=== PATIENT | male | born 1975 | race Caucasian/White ===

== ENCOUNTER 2022-08-09 08:17 | Outpatient (CLI) | payer OTHER, SELFPAY ==
[2022-08-09 14:05] LABS: Chloride* 104 mmol/L (96-114); Sodium* 140 mmol/L (135-149)
[2022-08-09 14:06] LABS: Potassium* 5.3 mmol/L (3.6-5.1)
[2022-08-09 14:08] LABS: Alanine Aminotransferase* 40 U/L (4-50); Blood Urea Nitrogen* 16 mg/dL (5-24); Carbon Dioxide* 29 mmol/L (20-32); Cholesterol* 172 mg/dL (90-199); Estimated Glomerular Filt Rate 92 ml/min; Glucose* 100 mg/dL (60-115); Triglycerides* 245 mg/dL (40-149)
[2022-08-09 14:09] LABS: Calcium* 10.2 mg/dL (8.4-10.6); HDL Cholesterol* 44 mg/dL (>=40); LDL Cholesterol Calculated 79 mg/dL (<100)
== END 2022-08-09 08:18 | disposition home or self-care (01) ==
PROVIDERS: PCP Family Medicine; Visit Provider Family Medicine
DX: I10 Essential (primary) hypertension (principal); E78.5 Hyperlipidemia, unspecified
CPT/HCPCS: 80048; 80061; 84460

== ENCOUNTER 2022-09-12 09:23 | Outpatient (CLI) | payer OTHER, SELFPAY | END 2022-09-12 09:24 | disposition home or self-care (01) | PROVIDERS: PCP Family Medicine; Visit Provider Surgery | DX: Z12.11 Encounter for screening for malignant neoplasm of colon (principal); K62.1 Rectal polyp; Z80.0 Family history of malignant neoplasm of digestive organs | CPT/HCPCS: 45385; 88305; A9270; J2250; J2405; J3010 ==

== ENCOUNTER 2023-09-29 10:34 | Outpatient (CLI) | payer OTHER, SELFPAY | END 2023-09-29 10:35 | disposition home or self-care (01) | PROVIDERS: PCP Family Medicine; Visit Provider Family Medicine | DX: E78.2 Mixed hyperlipidemia (principal); I10 Essential (primary) hypertension; Z12.5 Encounter for screening for malignant neoplasm of prostate | CPT/HCPCS: 80048; 80061; 84460; G0103 ==

== ENCOUNTER 2024-06-22 08:58 | Emergency (ER) | payer OTHER, SELFPAY ==
[2024-06-22 09:04] VITALS: BP 149/96; PULSE 87; RESP 18; TEMP 36.6; O2SAT 95; BMI 26.1
--- NOTE | 2024-06-22 09:08 | ED_ITS ---
HPI - Extremity Injury (Upper) General Time Seen by Provider: 09:08 Date Seen: 06/22/24 Chief Complaint: Extremity Pain/Injury, Upper Stated Complaint: felt pop in right arm Time Seen by Provider: 06/22/24 09:08 Source: patient Mode of arrival: ambulatory Limitations: no limitations History of Present Illness HPI narrative: 49-year-old male who presents today with right arm pain. Patient reports chronic shoulder pain bilaterally. Notes that he was reaching behind him yesterday and felt a pop in the shoulder, has had pain since then. No numbness or tingling in the arm, no weakness, no neck pain. Pain is worse with movements. Has not taken anything for this. Related Data Home Medications ?Medication ?Instructions ?Recorded ?Confirmed hydrocortisone 2.5 % topical cream 1 applic topical BID PRN 09/29/23 04/15/24 [id number] 250 2 tab PO Q6H PRN 04/15/24 04/15/24 mg-250 mg-65 mg tablet (Excedrin Migraine) Previous Rx's ?Medication ?Instructions ?Recorded trazodone 50 mg tablet 50 mg PO QHS PRN sleep #90 tabs 08/09/22 atorvastatin 40 mg tablet 40 mg PO QPM #90 tabs 09/29/23 lisinopril 10 mg tablet 10 mg PO DAILY #90 tabs 09/29/23 amitriptyline 75 mg tablet 75 mg PO QDAY #90 tabs 04/15/24 Allergies Allergy/AdvReac Type Severity Reaction Status Date / Time grass pollen Allergy Mild Congested Verified 04/15/24 08:03 house dust Allergy Mild Congested Verified 04/15/24 08:03 [facility] Medical History (Updated 06/22/24 @ 09:20 by Paul Hassan MD) Vestibular migraine ?G43.809 - Other migraine, not intractable, without status migrainosus (ICD- 10) Mixed hyperlipidemia ?E78.2 - Mixed hyperlipidemia (ICD-10) Primary hypertension ?I10 - Essential (primary) hypertension (ICD-10) Eczema ?L30.9 - Dermatitis, unspecified (ICD-10) Meniere's disease (09/03/12) ?H81.09 - Meniere's disease, unspecified ear (ICD-10) Chronic sinusitis ?J32.9 - Chronic sinusitis, unspecified (ICD-10) Surgical History (Updated 08/09/22 @ 08:57 by Alistair Fabian MD) History of eye surgery ?Z98.890 - Other specified postprocedural states (ICD-10) History of tympanostomy tube placement (09/03/12) ?Z96.22 - Myringotomy tube(s) status (ICD-10) Family History (Updated 08/09/22 @ 08:55 by Alistair Fabian MD) Father Colon cancer Mother Heart disease Other Diabetes Prostate cancer Social History (Updated 09/29/23 @ 10:13 by Yvonne Barney ~ RMA, RMA) Narrative: Crystal Lock, non-smoker What is your current living situation?: I presently have a place to live Problems where you live: no known problems In the past 12 months, utilities in danger of being shut off: no In the past 12 mos, have been you worried that your food would run out before you had money to buy more?: never true In the past 12 mos, the food you bought just didn't last and you didn't have money to buy more?: never true Smoking Status: Former smoker How often does anyone, including family, friends and others, physically hurt you : never How often does anyone, including family, friends and others, insult or talk down to you: never How often does anyone, including family, friends and others, threaten you with harm: never How often does anyone, including family, friends and others, scream or curse at you: never Exam Narrative: Exam Narrative: General: well nourished , NAD Head: Atraumatic and normocephalic ENT: External ears and external nose are normal Eyes: Conjunctiva clear, pupils are equal reactive, external ocular motions are intact Neck: Full spontaneous range of motion of the neck Lungs: No respiratory distress Musculoskeletal: Shoulder bulk, triceps biceps bulk symmetric bilaterally. No tenderness of the right shoulder. He does have pain with multiple movements, particularly active forward flexion past about 30? and resisted external rotation. Range of motion is better with passive forward flexion. No joint effusion. Neurologic: No gross focal neurologic deficits Skin: No rashes Psych: Mood and affect are appropriate Const: Vital Signs, click to edit/add: Vital Signs - 24 hr 06/22/24 09:04 Temperature 98 F Pulse Rate [Pulse Oximeter] 87 Respiratory Rate 18 Blood Pressure [Ri ght Upper Arm] 149/96 H Pulse Oximetry 95 Oxygen Delivery Me thod Room Air Course Course ED Course: Patient seen examined, presents today with right shoulder and arm pain. History of chronic bilateral sort of pain and decreased range of motion but felt a pop in the right shoulder yesterday and that concerned him. On exam here, strength is intact in all modalities but pain limits range of motion. Suspect rotator cuff injury. No evidence of cervical radiculopathy, biceps or triceps tendon rupture, joint effusion or dislocation. No fall and no bony tenderness, consider x-ray but not indicated today. Also consider MRI but limited utility in setting of acute injury. Patient will placed in sling, declines pain medication, and follow-up with orthopedics for further evaluation including possible physical therapy, MRI. Vital Signs Vital signs: Initial Vital Signs Temperature 98 F 06/22/24 09:04 Temperature Source Temporal Artery Scan 06/22/24 09:04 Pulse Rate 87 06/22/24 09:04 Respiratory Rate 18 06/22/24 09:04 Blood Pressure 149/96 H 06/22/24 09:04 Blood Pressure Mean 113 H 06/22/24 09:04 Pulse Oximetry 95 06/22/24 09:04 Oxygen Delivery Method Room Air 06/22/24 09:04 Vital Signs Temperature 98 F 06/22/24 09:04 Pulse Rate 87 06/22/24 09:04 Respiratory Rate 18 06/22/24 09:04 Blood Pressure 149/96 H 06/22/24 09:04 Pulse Oximetry 95 06/22/24 09:04 Oxygen Delivery Method Room Air 06/22/24 09:04 Temperature 98 F 06/22/24 09:04 Pulse Rate 87 06/22/24 09:04 Respiratory Rate 18 06/22/24 09:04 Blood Pressure 149/96 H 06/22/24 09:04 Pulse Oximetry 95 06/22/24 09:04 Oxygen Delivery Method Room Air 06/22/24 09:04 Discharge Plan Discharge Clinical Impression: Injury of right rotator cuff Patient Disposition: Home, Self-Care Condition: Stable Instructions: Rotator Cuff Injury (ED) Additional Instructions: Tylenol and ibuprofen as needed Wear sling for comfort. No lifting or overhead work with the right arm. Follow-up with orthopedics next week [facility] [address] [place] [id number] Activity Level: Wear Brace Prescriptions: No Action trazodone 50 mg tablet 50 mg PO QHS PRN (Reason: sleep) Qty: 90 3RF hydrocortisone 2.5 % cream 1 applic topical BID PRN atorvastatin 40 mg tablet 40 mg PO QPM Qty: 90 3RF lisinopril 10 mg tablet 10 mg PO DAILY Qty: 90 3RF Excedrin Migraine 250-250-65 mg tablet 2 tab PO Q6H PRN amitriptyline 75 mg tablet 75 mg PO QDAY Qty: 90 1RF Follow Up/Referrals: Alistair Fabian MD [Primary Care Provider] - Stand Alone Forms: [employer] Info Instructions
--- OUTSIDE RECORDS SUMMARY | 2024-06-22 09:31 | XMS_ITS | Clinical Summary ---
Author Organization [facility] [facility] Address [place], [place] [address] Care Team Providers Care Coach Builder Name Role Phone Unavailable Primary Care Provider Unavailabl e Allergies No known active allergies Medications Medication Sig Dispensed Refills Start Date End Date Status fluticasone, 50 mcg per actuation, nasal (FLONASE) 50 mcg/Actuation nasal sprayIndications:Acu te sinusitis, unspecified inhale 1-2 spray in each nostril by intranasal route once daily 1 Bottle 1 04/27/2011 Active hydroCHLOROthiazide 50 mg tablet 03/19/2018 Active Active Problems Problem Noted Date Diagnosed Date Meniere's disease, unspecified 11/03/2009 Overview (11/03/2009): Questionable diagnosis September 2009. Rash and other nonspecific skin eruption 010 Overview (11/03/2009): For the past 3 years. Unspecified sinusitis (chronic) 11/03/2009 Overview (11/03/2009): For the past 3 years. Immunizations Name Administration Dates Next Due Tdap 09/10/2008 Family History Medical History Relation Name Comments Alcohol/Drug Brother 2 Other Father Emphysema; smok er. Unknown Maternal Grandfather Cancer Maternal Grandmother Heart Disease Mother first [place] at ag e 42; bypass at that time. HTN, stents placed, Hyperlipidemia Mother Cancer-prostate Paternal Grandfather Other Paternal Grandmother Emphyse ma Other Sister 2 female issues Relation Name Status Comments Brother 1 Alive Brother 2 Father Alive Maternal Grandfather [place], age 46. Maternal Grandmother Mother Alive Other 1 MGGFs [place], age 46. Other 2 maternal aunts & uncle MIs a nd bypass Paternal Grandfather Paternal Grandmother Sister 1 Alive Sister 2 Social History Tobacco Use Types Packs/Day Years Used Date Smoking Tobacco: Never Smokeless Tobacco: Former Chew Quit: 07/24/1997 Comments:Smoked in high scho ol for 1 year, then quit. Chewed tobacco from age 13 to 22. No tobacco products at this time. Alcohol Use Standard Drinks/Week Comments Yes 0 (1 standard drink = 0.6 oz pur e alcohol) Rare; makes dizziness worse. Sex and Gender Information Value Date Recorded Sex Assigned at Not on file Gender Identity Not on file Sexual Orientation Not on file Obstetrics History Last Filed Vital Signs Vital Sign Reading Time Taken Comments Blood Pressure 108/70 2018 1:29 PM CDT Pulse 80 2018 1:29 PM CDT Temperature 36.4 C (97.6 F) 2018 1:29 PM CDT Respiratory Rate 16 2018 1:29 PM CDT Oxygen Saturation 97% 04/27/2011 11:46 AM CDT Inhaled Oxygen Concentration - - Weight 79.4 kg (175 lb) 2018 1:29 PM CDT Height 174 cm (5' 8.5) 2018 1:29 PM CDT Body Mass Index 26.22 2018 1:29 PM CDT Plan of Treatment Health Maintenance Due Date Last Done Comments Depression screening for age 12+ 1985 HIV for age 15-65 1988 Hepatitis C screening for ag e 18-79 1991 Colonoscopy through age 75 2018 Lipids for age 45-75 2018 Tetanus booster 09/10/2018 09/10/2008 BMI (ht and wt on same day) for age 18+ 2019 2018 Zoster (shingles) series for age 50+ (1 of 2) 2023 COVID-19 vaccine series (2023- season) 2024 Influenza for age 50-64 03/24/2024 Tdap Completed 09/10/2008 Pneumococcal series for age 6-64 Aged Out No longer eligible based on patient's age to complete this topic
--- OUTSIDE RECORDS SUMMARY | 2024-06-22 09:31 | XMS_ITS | Continuity of Care Document ---
Author Organization [facility] Address [address] [place] [address] Phone Care Team Providers Care Oven Roaster Name Role Phone Harinder ROPER, PhD, Wai Unavailable Unavai lable Allergies, Adverse Reactions, Alerts Substance Reaction Status Criticality No Known Allergies Active No Inform ation Procedures Procedure Date Office/Outpatient Visit,[facility] 2016 Advance Directives Directive Yes / No Effective Date File Name No Information Encounters Encounter Description Practice Location Reason(s) For Visit Diagnoses Date Provider Providers Copied on Encounter Office/Outpat ient Visit, [facility], [address], [place], [place], [id number], [place] tel:[phone] [facility] [place] [facility] Harinder Carreno. [facility], [address], [place], [address], [place]. tel:[phone] Referring Provider: Mario Mascorro, [facility] [address] [place], [address]. tel:[phone] Family History Family Member Type Diagnosis Age At Onset No Information Payers Payer name Insurance type Covered green party ID Authoriza tion(s) No Information Social History Type Description Quantity Date Captured Comments Alcohol Use Details Unknown Caffeine Use Details Unknown Tobacco Use Status Smoking Status Former smoker Non-Smoking Tobacco Use Details : No Details Available : No Details Available Sex Male Vital Signs Date / Time: Height Weight BMI Pulse Rate Blood Pressure Temperature Respiratory Rate Body Surface Area Head Circumference Head Circ. Percentile Wt./Henrique. Percentile BMI percentile Pulse Ox Inhaled Ox 3:46 PM 62 /min 122/79 mm[Hg] Chief Complaint And Reason For Visit No Information Reason For Referral Reason For Referral No Information History Of Present Illness Encounter Date Complaint History Of Prese nt Illness No Information Functional Status Date Functional Assessmen t No Information Instructions Date Instruction Additional Infor mation No Information Assessments Type Assessment Date assessment Cervicalgia Patient Care Teams Name Effective Dates (start - stop) Status Members No Information
== END 2024-06-22 09:38 | disposition home or self-care (01) ==
LOC: ED 09:29
PROVIDERS: Emergency Provider Family Medicine; PCP Family Medicine
DX: S46.001A Unspecified injury of muscle(s) and tendon(s) of the rotator cuff of right shoulder, initial encounter (principal); X58.XXXA Exposure to other specified factors, initial encounter
CPT/HCPCS: 99282; 99283

== ENCOUNTER 2024-07-01 06:57 | Outpatient (CLI) | payer OTHER, SELFPAY ==
--- OUTSIDE RECORDS SUMMARY | 2024-07-01 07:00 | XMS_ITS | Clinical Summary ---
Author Organization [employer] [facility] Address [place], [place] [address] Care Team Providers Care Organizational Effectiveness Director Name Role Phone Unavailable Primary Care Provider Unavailabl e Allergies No known active allergies Medications fluticasone, 50 mcg per actuation, nasal (FLONASE) 50 mcg/Actuation nasal sprayIndications :Acute sinusitis, unspecified inhale 1-2 spray in each nostril by intranasal route once daily 1 Bottle 1 1 Active hydroCHLOROthiaz daxa 50 mg tablet 8 Active Active Problems Problem Noted Date Diagnosed [...] Cancer Maternal Grandmother Heart Disease Mother first [place] at [place] 42; bypass at that time. HTN, stents placed, Hyperlipidemia Mother Cancer-prostate Paternal Grandfather Other Paternal Grandmother Emphyse ma Other Sister 2 female issues Relation Name Status Comments Brother 1 Alive Brother 2 Father Alive Maternal Grandfather [place], age 46. Maternal Grandmother Mother Alive Other 1 MGGFs [place], age 46. 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
--- OUTSIDE RECORDS SUMMARY | 2024-07-01 07:00 | XMS_ITS | Continuity of Care Document ---
Author Organization [facility] Address [address] [place] [address] Phone Care Team Providers Care Sheep Shearer Name Role Phone Harinder ROPER, PhD, Wai Unavailable Unavai lable Allergies, Adverse Reactions, Alerts Substance Reaction Status Criticality No Known Allergies Active No Inform ation Procedures Procedure Date Office/Outpatient Visit,[facility] 2016 Advance Directives Directive Yes / No Effective Date File Name No Information Encounters Encounter Description Practice Location Reason(s) For Visit Diagnoses Date Provider Providers Copied on Encounter Office/Outpat ient Visit, [facility], [address], [place], [place], [id number], [place] tel:[phone] [facility] [place] [facility] Harinder Carreno. [facility], [address], [place], [address], [place]. tel:[phone] Referring Provider: Mario Mascorro, [facility] [address] [place], [address]. tel:[phone] Family History Family Member Type Diagnosis Age At Onset No Information Payers Payer name Insurance type Covered democrat ID Authoriza tion(s) No Information Social History [...]
--- NOTE | 2024-07-01 07:15 | MR_ITS ---
[address] [address] Phone:?[phone] Fax:?[phone] Referring Physician Information: Oscar Bill M.D. [address] [facility] [address] Phone:?[phone] Fax:?[phone] Patient:Yvonne Yan D.O.B:?1975 Sex:?Male Phone:?[phone] [facility] MRN:?[id number] Exam Date:?07/01/2024 EXAM: MRI EXAMINATION OF THE RIGHT SHOULDER CLINICAL INFORMATION: Right shoulder pain. No specific injury. No history of surgery to this area. Evaluate rotator cuff tendon tear. TECHNICAL INFORMATION: Coronal STIR as well as axial, sagittal and coronal PD and T2-weighted images acquired. No prior studies for comparison. INTERPRETATION: Bones: There is no Hill-Sachs impaction deformity. No other occult fracture or osseous contusion. No other bone marrow edema pattern. Rotator Cuff: Series 9 image 6 as well as series 5 images 11 and 12 demonstrate a 0.9 cm AP full-thickness tear towards the far anterior fibers of the supraspinatus tendon insertion. Torn tendon fibers remain situated well lateral to the mid humeral head level. Undersurface partial tearing continues an additional 1.2 cm posteriorly from this. No evidence for muscle belly atrophy. Moderate infraspinatus tendinopathy. The teres minor tendon is intact. There is a 1.8 cm craniocaudal deep fiber tear with resultant severe attenuation of the superior subscapularis tendon. No appreciable rotator cuff muscle belly atrophy. Coracoacromial arch: There is osseous spurring involving the anterolateral aspect of the acromion. The bony acromiohumeral interval is measuring 6 mm. There is no thickening identified of the coracoacromial ligament. Acromioclavicular joint: Mild to moderate AC joint DJD. No deformity of the underlying supraspinatus tendon. Biceps tendon: Absent visualization of the intra-articular long head biceps tendon, appearance in keeping with acute or subacute disruption. Torn tendon fibers retracted 3.2 cm distal to the surgical neck of the humerus level. Glenohumeral joint and labrum: There is a small glenohumeral joint effusion. No discrete loose body within the joint. Osteochondral surfaces appear relatively preserved. There is tearing through the superior aspect of the labrum. Tearing continues into the superior posterior labrum. No discrete paralabral cyst is identified. CONCLUSION: 1. Acute or subacute intra-articular long head biceps tendon disruption. Torn tendon fibers retracted 3.2 cm distal to the surgical neck of the humerus level. 2. There is a small to moderate-sized full-thickness tear towards the far anterior supraspinatus tendon insertion. Torn tendon fibers remain situated well lateral to the mid humeral head level, and without muscle belly atrophy. There is a moderate adjacent undersurface partial tear extending posteriorly from this. 3. There is a moderate-sized segment of deep fiber tearing and resultant severe attenuation of the superior subscapularis tendon. 4. Mild to moderate AC joint DJD with mild narrowing of the acromiohumeral interval. 5. Tearing involving the superior labrum extending into the superior posterior labrum. No paralabral cyst. KES Electronically signed on 07/01/2024 1:21:00 PM by Cam Reed M.D.
== END 2024-07-01 06:58 | disposition home or self-care (01) ==
LOC: MRI 06:58
PROVIDERS: PCP Family Medicine; Visit Provider Orthopaedic Surgery Sports Medicine
DX: M25.511 Pain in right shoulder (principal); M75.101 Unspecified rotator cuff tear or rupture of right shoulder, not specified as traumatic; M19.011 Primary osteoarthritis, right shoulder; S43.431A Superior glenoid labrum lesion of right shoulder, initial encounter; S46.011A Strain of muscle(s) and tendon(s) of the rotator cuff of right shoulder, initial encounter
CPT/HCPCS: 73221

== ENCOUNTER 2024-07-29 08:40 | Outpatient (CLI) | payer OTHER, SELFPAY | END 2024-07-29 08:41 | disposition home or self-care (01) | LOC: FBOREF 08:41 | PROVIDERS: PCP Family Medicine; Visit Provider Family Medicine | DX: I10 Essential (primary) hypertension (principal) | CPT/HCPCS: 80048; 85025 ==

== ENCOUNTER 2024-08-01 17:54 | Emergency (ER) | payer OTHER, SELFPAY ==
--- OUTSIDE RECORDS SUMMARY | 2024-08-01 17:55 | XMS_ITS | Clinical Summary ---
Author Organization [email or web address] [facility] Address [place], [place] [address] Care Team Providers Care Therapist Asst Name Role Phone Unavailable Primary Care Provider [...] Cancer Maternal Grandmother Heart Disease Mother first [place] at ag e 42; bypass at that time. HTN, stents placed, Hyperlipidemia Mother Cancer-prostate Paternal Grandfather Other Paternal Grandmother Emphyse ma Other Sister 2 female issues Relation Name Status Comments Brother 1 Alive Brother 2 Father Alive Maternal Grandfather [place], age 46. Maternal Grandmother Mother Alive Other 1 MGGFs [place], age 46. 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
[2024-08-01 17:59] VITALS: BP 131/80; PULSE 68; RESP 18; TEMP 36.2; O2SAT 98; BMI 27.2
--- NOTE | 2024-08-01 18:40 | ED_ITS ---
HPI - General Adult General Chief complaint: Arrhythmia/Palpitations Stated complaint: heart palpitations Time Seen by Provider: 08/01/24 18:09 Source: patient and family Mode of arrival: ambulatory Limitations: no limitations History of Present Illness HPI narrative: 49-year-old male presenting today with concerns about his pulse. Patient was completely asymptomatic when he noticed that his watch stated that his pulse was in the 120s. He was fluctuating anywhere from 120s to 130s. It got as high as 160s. He states that he put on his coworkers watch and it was also very labile with a heart rate anywhere from the 80s to 120s. He denies feeling short of breath, he denies palpitations. He has no new dizziness or lightheadedness. He denies chest pain. He states that he checked his pulse while this was happening and it was less than 100. His watch still states as of this moment his pulse is 110-115. Related Data Home Medications ?Medication ?Instructions ?Recorded ?Confirmed hydrocortisone 2.5 % topical cream 1 applic topical BID PRN 09/29/23 07/29/24 [id number]-[id number]-sisxbxip 250 2 tab PO Q6H PRN 04/15/24 07/29/24 mg-250 mg-65 mg tablet (Excedrin Migraine) Previous Rx's ?Medication ?Instructions ?Recorded trazodone 50 mg tablet 50 mg PO QHS PRN sleep #90 tabs 08/09/22 atorvastatin 40 mg tablet 40 mg PO QPM #90 tabs 09/29/23 lisinopril 10 mg tablet 10 mg PO DAILY #90 tabs 09/29/23 amitriptyline 50 mg tablet 50 mg PO QHS #90 tabs 07/01/24 Allergies Allergy/AdvReac Type Severity Reaction Status Date / Time grass pollen Allergy Mild Congested Verified 07/29/24 08:12 house dust Allergy Mild Congested Verified 07/29/24 08:12 Review of Systems Status of ROS: Reports: 10 or more systems reviewed and unremarkable except as noted in History and below [facility] Medical History Vestibular migraine ?G43.809 - Other migraine, not intractable, without status migrainosus (ICD- 10) Mixed hyperlipidemia ?E78.2 - Mixed hyperlipidemia (ICD-10) Primary hypertension ?I10 - Essential (primary) hypertension (ICD-10) Eczema ?L30.9 - Dermatitis, unspecified (ICD-10) Meniere's disease (09/03/12) ?H81.09 - Meniere's disease, unspecified ear (ICD-10) Chronic sinusitis ?J32.9 - Chronic sinusitis, unspecified (ICD-10) Surgical History History of eye surgery ?Z98.890 - Other specified postprocedural states (ICD-10) History of tympanostomy tube placement (09/03/12) ?Z96.22 - Myringotomy tube(s) status (ICD-10) Family History Father Colon cancer Mother Heart disease Other Diabetes Prostate cancer Social History Narrative: Crystal Lock, non-smoker What is your current living situation?: I presently have a place to live Problems where you live: no known problems In the past 12 months, utilities in danger of being shut off: no In past 12 months, lack of transportation kept you from medical appts, meetings, work, or getting things needed for daily living: no In the past 12 mos, have been you worried that your food would run out before you had money to buy more?: never true In the past 12 mos, the food you bought just didn't last and you didn't have money to buy more?: never true Smoking Status: Former smoker How often does anyone, including family, friends and others, physically hurt you : never How often does anyone, including family, friends and others, insult or talk down to you: never How often does anyone, including family, friends and others, threaten you with harm: never How often does anyone, including family, friends and others, scream or curse at you: never Exam Narrative: Exam Narrative: Well-nourished well-developed patient in no acute distress. Alert and oriented. Answers questions appropriately. Mood and affect are appropriate. Thoughts are goal oriented and rational. No tangential or magical thinking noted. Patient speaks in full sentences without needing to catch his breath. HEENT: Normocephalic atraumatic. Pupils are equally round reactive to light. Extraocular muscles are intact. Conjunctivae are moist without any icterus noted. Moist mucous membranes. Cardiovascular: Heart is regular rate and rhythm S1 and S2 are present without any murmurs. Lungs: Clear to auscultation bilaterally no wheezes rhonchi or rales are appreciated. Patient takes deep breaths without any discomfort. Extremities: Bilateral lower extremities are without edema. Skin: Well perfused. 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 EKG, read by me, shows normal sinus rhythm with a pulse of 75. This was simultaneously done while his watch clocked a heart rate of 113. Vital Signs Vital signs: Initial Vital Signs Temperature 97.2 F L 08/01/24 17:59 Temperature Source Temporal Artery Scan 08/01/24 17:59 Pulse Rate 68 08/01/24 17:59 Respiratory Rate 18 08/01/24 17:59 Blood Pressure 131/80 08/01/24 17:59 Blood Pressure Mean 97 08/01/24 17:59 Blood Pressure Position Sitting 08/01/24 17:59 Pulse Oximetry 98 08/01/24 17:59 Vital Signs Temperature 97.2 F L 08/01/24 17:59 Pulse Rate 68 08/01/24 17:59 Respiratory Rate 18 08/01/24 17:59 Blood Pressure 131/80 08/01/24 17:59 Pulse Oximetry 98 08/01/24 17:59 Temperature 97.2 F L 08/01/24 17:59 Pulse Rate 68 08/01/24 17:59 Respiratory Rate 18 08/01/24 17:59 Blood Pressure 131/80 08/01/24 17:59 Pulse Oximetry 98 08/01/24 17:59 Medical Decision Making MDM Narrative Medical decision making narrative: 49-year-old male with a malfunction of his watch. Patient reassured that his pulse was within normal limits an EKG look normal. Again, patient completely asymptomatic. Discharge Plan Discharge Clinical Impression: Medical condition not demonstrated Patient Disposition: Home, Self-Care Condition: Stable Prescriptions: No Action trazodone 50 mg tablet 50 mg PO QHS PRN (Reason: sleep) Qty: 90 3RF hydrocortisone 2.5 % cream 1 applic topical BID PRN atorvastatin 40 mg tablet 40 mg PO QPM Qty: 90 3RF lisinopril 10 mg tablet 10 mg PO DAILY Qty: 90 3RF Excedrin Migraine 250-250-65 mg tablet 2 tab PO Q6H PRN amitriptyline 50 mg tablet 50 mg PO QHS Qty: 90 3RF Follow Up/Referrals: Alistair Fabian MD [Primary Care Provider] - Stand Alone Forms: [employer] Info Instructions
--- OUTSIDE RECORDS SUMMARY | 2024-08-01 18:50 | XMS_ITS | Clinical Summary ---
Author Organization [employer] [facility] Address [place], [place] [address] Care Team Providers Care Cyber Reverse Engineer Name Role Phone Unavailable Primary Care Provider [...] Cancer Maternal Grandmother Heart Disease Mother first [place] at ag e 42; bypass at that time. HTN, stents placed, Hyperlipidemia Mother Cancer-prostate Paternal Grandfather Other Paternal Grandmother Emphyse ma Other Sister 2 female issues Relation Name Status Comments Brother 1 Alive Brother 2 Father Alive Maternal Grandfather [place], age 46. Maternal Grandmother Mother Alive Other 1 MGGFs [place], age 46. Other 2 maternal aunts & [...] on file Legal Sex Male 5:42 AM SKIN FORMER Gender Identity Not on file Sexual Orientation [...]
[2024-08-01 19:35] VITALS: BP 131/80; PULSE 68; RESP 18; TEMP 36.2
== END 2024-08-01 19:00 | disposition home or self-care (01) ==
LOC: ED 18:49
PROVIDERS: Emergency Provider Family Medicine; PCP Family Medicine
DX: Z71.1 Person with feared health complaint in whom no diagnosis is made (principal)
CPT/HCPCS: 93005; 99282; 99283; 99284

== ENCOUNTER 2024-08-19 06:15 | Day surgery (SDC) | payer OTHER, SELFPAY ==
[2024-08-19] VITALS (13 sets, daily range): BP systolic 104–143; BP diastolic 59–90; PULSE 63–74; RESP 14–25; TEMP 35.9–36.5; O2SAT 92–98; BMI 27.1
--- OUTSIDE RECORDS SUMMARY | 2024-08-19 06:18 | XMS_ITS | Continuity of Care Document ---
Author Organization [facility] Address [address] [place] [address] Phone Care Team Providers Care Pca Name Role Phone Harinder ROPER, PhD, Wai Unavailable Unavai lable Allergies, Adverse Reactions, Alerts Substance Reaction Status Criticality No Known Allergies Active No Inform ation Procedures Procedure Date Office/Outpatient Visit,[facility] 2016 Advance Directives Directive Yes / No Effective Date File Name No Information Encounters Encounter Description Practice Location Reason(s) For Visit Diagnoses Date Provider Providers Copied on Encounter Office/Outpat ient Visit, [facility], [address], [place], [place], [id number], [place] tel:[phone] [facility] [place] [facility] Harinder Carreno. [facility], [address], [place], [address], [place]. tel:[phone] Referring Provider: Mario Mascorro, [facility] [address] [place], [address]. tel:[phone] Family History Family Member Type Diagnosis Age [...]
--- OUTSIDE RECORDS SUMMARY | 2024-08-19 06:18 | XMS_ITS | Clinical Summary ---
Author Organization [employer] [facility] Address [place], [place] [address] Care Team Providers Care Board Design Engineer Name Role Phone Unavailable Primary Care [...] Cancer Maternal Grandmother Heart Disease Mother first [place] at ag e 42; bypass at that time. HTN, stents placed, Hyperlipidemia Mother Cancer-prostate Paternal Grandfather Other Paternal Grandmother Emphyse ma Other Sister 2 female issues Relation Name Status Comments Brother 1 Alive Brother 2 Father Alive Maternal Grandfather [place], age 46. Maternal Grandmother Mother Alive Other 1 MGGFs [place], age 46. 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
[2024-08-19] MEDS: SODIUM CHLORIDE 0.9 % (FLUSH) 10 ML SYRINGE IVF (06:59)
[2024-08-19] MEDS: LACTATED RINGERS 1000 ML 1,000 ML 100 ML IV (07:00)
--- NOTE | 2024-08-19 07:09 | W.PM.H&PU ---
History & Physical Update History & Physical Update H&P Reviewed and patient assessed: No changes noted
[2024-08-19] MEDS: SCOPOLAMINE 1 MG/3 DAY PATCH 1 PATCH TRANSDERMA (07:14)
[2024-08-19] MEDS: MIDAZOLAM HCL 1 MG/ML inj IVP (07:20)
--- NOTE | 2024-08-19 07:24 | SUR.PREOP ---
TIME?OUT:? 18, right shoulder PT/RN/MDA?VERIFICATION?OF?SURGICAL?SITE,?PROCEDURE,?AND?CONSENT OBTAINED?PRIOR?TO?INVASIVE?PROCEDURE.
[2024-08-19] MEDS: CEFAZOLIN 2 GM in 0.9 % SODIUM CHLORIDE Mini-bag 100 ML IVPB (07:35)
[2024-08-19] MEDS: EPINEPHrine 1 MG in SODIUM CHLORIDE IRRIG SOLUTION 3,000 ML 9003 MG IRRIGATION ×4 (07:58→09:15)
--- NOTE | 2024-08-19 09:13 | PM.ORPRC ---
Procedure Note Date of procedure: 08/19/24 Procedure: PREOPERATIVE DIAGNOSES: 1. Right shoulder rotator cuff tear - full-thickness supraspinatus 2. Right shoulder AC degenerative joint disease, primary, moderate with indentation into the supraspinatus 3. Right shoulder long head of biceps traumatic rupture 2. Right shoulder subacromial impingement syndrome. POSTOPERATIVE DIAGNOSES: 1. Right shoulder rotator cuff tear - high-grade partial-thickness upper border subscapularis and full-thickness supraspinatus 2. Right shoulder AC degenerative joint disease, primary, moderate with indentation into the supraspinatus 3. Right shoulder long head of biceps traumatic rupture 2. Right shoulder subacromial impingement syndrome. NAME OF OPERATION: 1. Right shoulder arthroscopic rotator cuff repair (upper border subscapularis and full-thickness supraspinatus crescent tear) 2. Right shoulder arthroscopic distal clavicle excision 3. Right shoulder arthroscopic bursectomy, subacromial decompression/partial acromioplasty. SURGEON: Oscar Bill MD PROFESSOR OF MUSIC: Darius LONDON. Of note, a skilled construction administrative assistant was critical for this case to aide in patient positioning, suture manipulation, arm positioning, instrument positioning, and closure. ANESTHESIA: General plus preoperative supraclavicular block. EBL: 25 mL IMPLANTS: Arthrex 4.75 mm BioComposite SwiveLock suture anchor (x3); Arthrex 2.6 mm knotless FiberTak RC (x2) COMPLICATIONS: None evident INDICATIONS: The patient is a pleasant, 49-year-old male who has experienced right shoulder pain that has been increasing in recent time. Physical exam and imaging were consistent with a rotator cuff tear. Given their findings, as well as the weakness and pain, and inadequate response to nonoperative management, recommendation was made for surgery. FINDINGS: Exam under anesthesia revealed stable shoulder with excellent range of motion. The diagnostic arthroscopy revealed healthy chondral surfaces of the glenohumeral joint. The Subscapularis tendon was torn from its upper border with moderate retraction. The long head of the biceps tendon was torn and absent from the glenohumeral joint. The stump did remain. This was approximately 15 mm in length or more. The superior rotator cuff tendon was found to be torn full-thickness with a crescent type tear and mild retraction. The labrum was relatively healthy overall. No loose bodies were identified within the pouch or subscapularis recess. PROCEDURE: Following a thorough discussion of risks, benefits, and alternatives, consent was obtained and the right shoulder was marked. The patient was brought to the operating room and placed supine on the operating table. Induction of anesthesia was completed after preoperative supraclavicular block was administered in preop holding. Appropriate time out was performed identifying proper patient, site, and procedure. 2 g IV Ancef was administered within 1 hour of incision preoperatively. The right upper extremity was prepped and draped in the appropriate sterile fashion using ChloraPrep prep. This was after the patient was positioned in the beach chair with their head in neutral alignment and all bony prominences well padded. The shoulder was insufflated with 20mL of normal saline via an 18g spinal needle from a posterior approach. An 11 blade skin incision allowed a blunt trochar to be inserted and diagnostic arthroscopy to be performed with the findings as noted above. An anterior portal was established with an outside in technique. This allowed the probe to be inserted and confirm the diagnostic arthroscopic findings. The shaver was then inserted and allowed debridement of the biceps tendon stump that remained attached to the glenoid. Following this, the upper border subscapularis was repaired after debriding the lesser tuberosity with the shaver and [place] cautery. Subscapularis was captured in horizontal mattress fashion with a fiber tape suture. The tails were brought to a single anchor in the lesser tuberosity with excellent reapproximation of the subscap tendon and good excursion/tension. Thereafter, the subacromial space was entered. Here, a complete bursectomy and partial acromioplasty/subacromial decompression was performed with a combination of radiofrequency ablator, the shaver, and a 5.5 mm bur. Additionally, distal clavicle excision was performed with the bur. 8 mm of distal clavicle was resected based on the with of our bur. Further inspection of the supraspinatus and infraspinatus rotator cuff was performed. This identified the tear as noted above. The margins of the tear were debrided, and the greater tuberosity was debrided with a combination of the ap[place] cautery, shaver, and bur on reverse setting. After gentle decortication, a speed bridge configuration with a medial newton was planned. 2 medial anchors were placed and the sutures were passed through the rotator cuff with a fiber link (2.6 mm knotless FiberTak RC). The knotless suture tails were then retrieved, crossed, and cinched down for the medial newton purpose. A tail from each of the medial row anchor FiberTapes were then retrieved and brought to a lateral row anchor. Excellent reapproximation of the tissue to the greater tuberosity was achieved with broad footprint compression. The rotator cuff showed excellent reapproximation of the greater tuberosity with good security upon probing. Prior to anchor otr driver removal, the eyelet sutures were tugged on for each anchor and found that the anchor had excellent stability within the bone. The shoulder was placed through range of motion and found to be stable. The rotator cuff was re-probed and found to be stable. Instruments were removed. Excess fluid was drained, closure performed with 4-0 Monocryl and Steri-Strips. Dressings were applied. Sling was applied. The patient was awoken from anesthesia and transferred to the PACU in stable condition. A skilled construction administrative assistant was critical for this case to aid in patient positioning, limb positioning, skill to manipulate arthroscopic instruments and camera, suture management, patient safety, and closure. PLAN: 1. Elbow, forearm, wrist and digit range of motion as tolerated. 2. Encouraged ice. 3. Oxycodone for pain as needed. 4. Sling at all times except for ROM and showering. 5. Follow up with PA visit in 1-2 weeks for wound check. Initiate physical therapy following that visit for passive range of motion. Initiate active assisted range of motion at 4-6 weeks. May do pendulums now.
--- NOTE | 2024-08-19 10:59 | W.PM.NB ---
Nerve Block Nerve Block Time Seen by Provider: 07:20 Date Seen: 08/19/24 Type of block requested by surgeon for post-operative analgesia: supraclavicular Side: right Time out performed: Yes Verification of patient name: Yes Verification of date of : Yes Site marking: site marked Name of person performing procedure: Ancelmo Continuous monitoring Was continuous monitoring of O2 sat, B/P, purchaser automotive parts, recorded every 15 minutes?: Yes Procedure Checklist: sterile prep, needles and gloves Ultrasound guided. Images saved: Yes Medications given in 5ml increments after negative aspiration: Ropivicaine %: 0.5 mL: 20 Needle gauge: 22 Precedex (mcg): 25 Patient tolerated procedure well: Yes Block Charges Block Charge (with Pro Fee): Brachial Plexus Use of Ultrasound Machine for Block: Yes- US Guidance/pain block
--- NOTE | 2024-08-19 12:34 | P.ANES_ITS ---
Anesthesia Charges Start Date/Time Anesthesia Start Date: 08/19/24 Anesthesia Start Time: 07:26 Stop Date/Time Anesthesia Stop Date: 08/19/24 Anesthesia Stop Time: 09:34 Coding CPT Codes CPT Codes: ANESTH SURGERY OF SHOULDER - 08843 ([id number]) P2 - PATIENT W/MILD SYST DISEASE, QZ - CONTACT CENTER ENGINEER SVC W/O EYEGLASS FRAMES POLISHER BY
--- NOTE | 2024-08-19 12:34 | W.ANESCHARGE ---
Anesthesia Charges Start Date/Time Anesthesia Start Date: 08/19/24 Anesthesia Start Time: 07:26 Stop Date/Time Anesthesia Stop Date: 08/19/24 Anesthesia Stop Time: 09:34 Coding CPT Codes CPT Codes: ANESTH SURGERY OF SHOULDER - 67983 ([id number]) P2 - PATIENT W/MILD SYST DISEASE, QZ - CASTING PLUG ASSEMBLER SVC W/O ENGINEERING WRITER BY
== END 2024-08-19 11:32 | disposition home or self-care (01) ==
LOC: OR 06:16
PROVIDERS: PCP Family Medicine; Visit Provider Orthopaedic Surgery Sports Medicine
PROC: (CPT 29805; principal; 2024-08-19 07:30)
DX: M75.121 Complete rotator cuff tear or rupture of right shoulder, not specified as traumatic (principal); M19.011 Primary osteoarthritis, right shoulder; M75.41 Impingement syndrome of right shoulder; S46.111A Strain of muscle, fascia and tendon of long head of biceps, right arm, initial encounter; G89.18 Other acute postprocedural pain
CPT/HCPCS: 29827; 29826; 29824; 01630; 64415; 76942; A9270; C1713; J0171; J0330; J0690; J1100; J1630; J2250; J2405; J2704; J2795; J7120; L3670

== ENCOUNTER 2024-12-24 16:39 | Outpatient (CLI) | payer OTHER, SELFPAY | END 2024-12-24 16:40 | disposition home or self-care (01) | PROVIDERS: PCP Family Medicine; Visit Provider Family Medicine | DX: E78.2 Mixed hyperlipidemia (principal); I10 Essential (primary) hypertension | CPT/HCPCS: 80048; 80061 ==

== ENCOUNTER 2024-12-26 16:45 | Outpatient (RCR) | payer OTHER, SELFPAY | END 2025-02-10 11:15 | disposition home or self-care (01) | PROVIDERS: PCP Family Medicine; Visit Provider Orthopaedic Surgery Sports Medicine | DX: Z48.89 Encounter for other specified surgical aftercare (principal); Z51.89 Encounter for other specified aftercare | CPT/HCPCS: 97110; 97161 ==